=== PATIENT | male | born 1955 | race Two or more races ===

== ENCOUNTER 2017-04-29 17:33 | Inpatient (IN) | payer MEDICAID ==
[~2017-04-29] VITALS: Ht 177.8 cm; Wt 86.7 kg
[2017-04-29] MEDS ORDERED: ATROV IH (18:07)
[2017-04-29] MEDS ORDERED: HYDR4TAB4 PO (18:07)
[2017-04-29] MEDS ORDERED: DOCU-150 PO (18:07)
[2017-04-29] MEDS ORDERED: HYOS0.122 PO (18:07)
[2017-04-29] MEDS ORDERED: LACT10SO6 PO (18:07)
[2017-04-29] MEDS ORDERED: LORA0.5T2 PO (18:07)
[2017-04-29] MEDS ORDERED: MORPHINE SULFATE 4 MG/ML CPJ (NOT FOR IM USE) IV STA (18:21)
[2017-04-29] MEDS ORDERED: ONDANSETRON HCL 4MG/2ML VIAL IV STA (18:21)
[2017-04-29] MEDS ORDERED: IPRATROPIUM BROMIDE (0.02%) 0.5MG/2.5ML NEB HHN STA (18:30)
[2017-04-29] MEDS ORDERED: ALBUTEROL (0.083%) 2.5MG/3ML NEB HHN STA (18:30)
[2017-04-29] MEDS ORDERED: ONDANSETRON 4MG ODT PO ONE (20:00)
[2017-04-29 20:17] LABS: BASOPHILS % 0.4 % (0.0-2.0); EOSINOPHILS % 2.7 % (0.0-5.0); HEMATOCRIT. 42.9 % (42.0-52.0); HEMOGLOBIN. 14.3 g/dL (14.0-18.0); LYMPHOCYTES % 8.1 % (20.0-50.0); MEAN CORPUSCULAR HEMOGLOBIN 30.4 pg (28.0-32.0); MEAN CORPUSCULAR VOLUME 91.3 fL (80.0-94.0); MEAN PLATELET VOLUME 9.8 fl (7.4-10.4); MONOCYTES % 7.6 % (2.0-8.0); NEUTROPHILS % 81.2 % (40.0-76.0); PLATELET 199 x1000/uL (130-400); RED CELL DISTRIBUTION WIDTH 14.1 % (11.6-14.6)
[2017-04-29 20:19] LABS: CHLORIDE 104 mEq/L (98-107)
[2017-04-29 20:21] LABS: INR 1.1; PROTHROMBIN TIME 11.4 sec (9.4-11.6)
[2017-04-29 20:30] LABS: CARBON DIOXIDE 28 mEq/L (21-32); TROPONIN I < 0.02 ng/mL (0.00-0.04)
[2017-04-29] MEDS ORDERED: METHYLPREDNISOLONE SOD SUCC 125 MG/2 ML VIAL IV STA (21:17)
[2017-04-29] MEDS ORDERED: MAGNESIUM 2 G PREMIX 50 ML IV ONE (21:30)
[2017-04-29] MEDS ORDERED: LEVOFLOXACIN 500MG PREMIX 100 ML IV ONE (23:00)
[2017-04-29] MEDS ORDERED: ALBUTEROL (0.083%) 2.5MG/3ML NEB HHN SCH (23:03)
[2017-04-29] MEDS ORDERED: IPRATROPIUM BROMIDE (0.02%) 0.5MG/2.5ML NEB HHN SCH (23:04)
[2017-04-30] MEDS ORDERED: HYDROCODONE/ACETAMINOPHEN 5/325MG TABLET PO ONE ×2 (00:15→00:30)
[2017-04-30 00:27] LABS: CLARITY URINE CLEAR (CLEAR); COLOR URINE YELLOW (YELLOW); KETONES URINE 1+ (NEGATIVE); LEUKOCYTE ESTERASE URINE NEGATIVE (NEGATIVE); NITRITE URINE NEGATIVE (NEGATIVE); OCCULT BLOOD URINE NEGATIVE (NEGATIVE); PH URINE 6.5 (4.5-8.0); PROTEIN URINE NEGATIVE (NEGATIVE); SPECIFIC GRAVITY URINE 1.026 (1.005-1.030)
[2017-04-30] MEDS: AMLODIPINE 10MG TABLET PO SCH ×2 (07:15→09:00)
[2017-04-30] MEDS ORDERED: GUAIFENESIN 200MG/10ML SUGAR FREE UDC PO PRN (07:15)
[2017-04-30] MEDS ORDERED: DOCUSATE SODIUM 100MG CAPSULE PO PRN (07:15)
[2017-04-30] MEDS ORDERED: CLONIDINE 0.1MG TABLET PO PRN (07:15)
[2017-04-30] MEDS ORDERED: ONDANSETRON HCL 4MG/2ML VIAL IV PRN (07:15)
[2017-04-30] MEDS ORDERED: HYDROCODONE/ACETAMINOPHEN 5/325MG TABLET PO PRN (07:15)
[2017-04-30] MEDS: ENOXAPARIN 40MG/0.4ML SYR SUBCUT SCH (11:30)
[2017-04-30] MEDS ORDERED: ASPIRIN 81MG EC TABLET PO NR (12:00)
[2017-04-30] MEDS: ASPIRIN 81MG EC TABLET PO SCH (14:27)
[2017-04-30 22:00] VITALS: BP 137/86
[2017-04-30 23:00] VITALS: BP 137/86
[2017-05-01] VITALS: BP 136/76
[2017-05-01] MEDS: HYDROMORPHONE HCL/PF 2MG/ML CPJ IV PRN ×7 (00:33→23:37)
[2017-05-01] MEDS: IPRATROPIUM/ALBUTEROL 0.5-3(2.5)MG/3ML NEB INH PRN ×2 (00:42→08:58)
[2017-05-01 04:00] VITALS: BP 131/68
[2017-05-01 06:35] LABS: HEMATOCRIT. 40.1 % (42.0-52.0); HEMOGLOBIN. 13.1 g/dL (14.0-18.0); MEAN CORPUSCULAR HEMOGLOBIN 29.6 pg (28.0-32.0); MEAN CORPUSCULAR VOLUME 90.5 fL (80.0-94.0); MEAN PLATELET VOLUME 9.6 fl (7.4-10.4); PLATELET 212 x1000/uL (130-400); RED BLOOD CELL COUNT 4.42 mill/uL (4.7-6.1); RED CELL DISTRIBUTION WIDTH 14.1 % (11.6-14.6)
[2017-05-01 08:00] VITALS: BP 127/78
[2017-05-01 08:41] LABS: CHLORIDE 106 mEq/L (98-107)
[2017-05-01] MEDS: ENOXAPARIN 40MG/0.4ML SYR SUBCUT SCH (08:48)
[2017-05-01] MEDS: AMLODIPINE 10MG TABLET PO SCH (08:48)
[2017-05-01 08:50] LABS: CARBON DIOXIDE 26 mEq/L (21-32)
[2017-05-01 12:00] VITALS: BP 132/72
[2017-05-01] MEDS: IPRATROPIUM/ALBUTEROL 0.5-3(2.5)MG/3ML NEB HHN SCH ×3 (12:37→21:04)
[2017-05-01] MEDS: METHYLPREDNISOLONE SOD SUCC 125 MG/2 ML VIAL IV SCH ×2 (14:31→23:36)
[2017-05-01 14:55] LABS: PLATELET ESTIMATE NORMAL
[2017-05-01 16:00] VITALS: BP 119/78
[2017-05-01 20:00] VITALS: BP 109/73
[2017-05-02] VITALS: BP 113/66
[2017-05-02] MEDS: IPRATROPIUM/ALBUTEROL 0.5-3(2.5)MG/3ML NEB HHN SCH ×6 (00:29→20:38)
[2017-05-02 04:00] VITALS: BP 134/79
[2017-05-02] MEDS: HYDROMORPHONE HCL/PF 2MG/ML CPJ IV PRN ×6 (04:02→21:02)
[2017-05-02] MEDS: METHYLPREDNISOLONE SOD SUCC 125 MG/2 ML VIAL IV SCH ×3 (06:05→21:04)
[2017-05-02 08:00] VITALS: BP 117/72
[2017-05-02] MEDS: AMLODIPINE 10MG TABLET PO SCH (08:15)
[2017-05-02] MEDS: ASPIRIN 81MG EC TABLET PO SCH (08:30)
[2017-05-02] MEDS: ENOXAPARIN 40MG/0.4ML SYR SUBCUT SCH (08:31)
[2017-05-02 12:00] VITALS: BP 115/73
[2017-05-02 16:00] VITALS: BP 137/70
[2017-05-02 20:00] VITALS: BP 116/73
[2017-05-03] VITALS: BP 115/74
[2017-05-03] MEDS: IPRATROPIUM/ALBUTEROL 0.5-3(2.5)MG/3ML NEB HHN SCH ×6 (00:44→21:37)
[2017-05-03] MEDS: HYDROMORPHONE HCL/PF 2MG/ML CPJ IV PRN ×6 (01:02→21:59)
[2017-05-03 04:00] VITALS: BP 116/75
[2017-05-03] MEDS: METHYLPREDNISOLONE SOD SUCC 125 MG/2 ML VIAL IV SCH (05:16)
[2017-05-03 08:00] VITALS: BP 142/73
[2017-05-03] MEDS: ENOXAPARIN 40MG/0.4ML SYR SUBCUT SCH (08:42)
[2017-05-03] MEDS: AMLODIPINE 10MG TABLET PO SCH (08:43)
[2017-05-03] MEDS: ASPIRIN 81MG EC TABLET PO SCH (09:23)
[2017-05-03 12:00] VITALS: BP 119/76
[2017-05-03] MEDS: HYDROCODONE/ACETAMINOPHEN 10/325MG TABLET PO PRN (15:31)
[2017-05-03 16:00] VITALS: BP 125/79
[2017-05-03 20:00] VITALS: BP 124/77
[2017-05-04] VITALS (7 sets, daily range): BP systolic 121–145; BP diastolic 71–84
[2017-05-04] MEDS: IPRATROPIUM/ALBUTEROL 0.5-3(2.5)MG/3ML NEB HHN SCH ×6 (00:36→21:17)
[2017-05-04] MEDS: HYDROMORPHONE HCL/PF 2MG/ML CPJ IV PRN ×6 (01:57→23:58)
[2017-05-04] MEDS: HYDROCODONE/ACETAMINOPHEN 10/325MG TABLET PO PRN ×3 (03:57→21:55)
[2017-05-04] MEDS: ASPIRIN 81MG EC TABLET PO SCH (08:34)
[2017-05-04] MEDS: METHYLPREDNISOLONE SOD SUCC 125 MG/2 ML VIAL IV SCH (08:34)
[2017-05-04] MEDS: ENOXAPARIN 40MG/0.4ML SYR SUBCUT SCH (08:34)
[2017-05-04] MEDS: AMLODIPINE 10MG TABLET PO SCH (08:37)
[2017-05-05] VITALS (7 sets, daily range): BP systolic 115–136; BP diastolic 70–86
[2017-05-05] MEDS: IPRATROPIUM/ALBUTEROL 0.5-3(2.5)MG/3ML NEB HHN SCH ×5 (01:06→16:00)
[2017-05-05] MEDS: HYDROMORPHONE HCL/PF 2MG/ML CPJ IV PRN ×4 (03:49→17:01)
[2017-05-05] MEDS: HYDROCODONE/ACETAMINOPHEN 10/325MG TABLET PO PRN ×2 (06:39→19:34)
[2017-05-05] MEDS: METHYLPREDNISOLONE SOD SUCC 125 MG/2 ML VIAL IV SCH (09:08)
[2017-05-05] MEDS: AMLODIPINE 10MG TABLET PO SCH (09:09)
[2017-05-05] MEDS: ASPIRIN 81MG EC TABLET PO SCH (09:09)
[2017-05-05] MEDS: ENOXAPARIN 40MG/0.4ML SYR SUBCUT SCH (09:09)
== END 2017-05-05 20:10 | DRG 140 ==
LOC: ER 17:57 → EDBEDREQ 23:28 → EDBEDREQSVC 23:28 → SUPCPDRO 04-30 07:14 → 6EST 04-30 07:18 → ENRESERV 04-30 18:40
PROVIDERS: ADMIT Hospitalist; ATTEND Hospitalist
DX: J44.1 Chronic obstructive pulmonary disease with (acute) exacerbation (principal); J96.00 Acute respiratory failure, unspecified whether with hypoxia or hypercapnia; S32.9XXA Fracture of unspecified parts of lumbosacral spine and pelvis, initial encounter for closed fracture; E44.1 Mild protein-calorie malnutrition; Z99.81 Dependence on supplemental oxygen; E86.0 Dehydration; D72.829 Elevated white blood cell count, unspecified; F17.200 Nicotine dependence, unspecified, uncomplicated; Z51.5 Encounter for palliative care; Z66 Do not resuscitate; W18.30XA Fall on same level, unspecified, initial encounter; F32.9 Major depressive disorder, single episode, unspecified; F41.9 Anxiety disorder, unspecified; G89.29 Other chronic pain; M54.9 Dorsalgia, unspecified; Y93.89 Activity, other specified; Y92.128 Other place in nursing home as the place of occurrence of the external cause; Z79.899 Other long term (current) drug therapy; Y99.8 Other external cause status; Z68.27 Body mass index [BMI] 27.0-27.9, adult
CPT/HCPCS: 36415; 51703; 70450; 71045; 72100; 72192; 73521; 80053; 81003; 82962; 83605; 83690; 83880; 84484; 85025; 85610; 86850; 86900; 87040; 87086; 93005; 93970; 94640; 94644; 96365; 96368; 96375; 99291; J1170; J1650; J1956; J2270; J2405; J2930; J3475; J7611; J7620; Q0162